=== PATIENT | female | born 1965 | race African-American/Black ===

== ENCOUNTER 2018-03-16 13:15 | Emergency (ER) | payer MEDICAID ==
[~2018-03-16] VITALS: Ht 170.2 cm; Wt 90.0 kg
[2018-03-16 15:24] LABS: CLARITY URINE CLEAR (CLEAR); COLOR URINE YELLOW (YELLOW); KETONES URINE 1+ (NEGATIVE); LEUKOCYTE ESTERASE URINE 1+ (NEGATIVE); NITRITE URINE NEGATIVE (NEGATIVE); OCCULT BLOOD URINE NEGATIVE (NEGATIVE); PROTEIN URINE TRACE (NEGATIVE); SPECIFIC GRAVITY URINE 1.017 (1.005-1.030)
[2018-03-16 15:43] LABS: HEMATOCRIT. 41.4 % (36.0-48.0); HEMOGLOBIN. 13.7 g/dL (12.0-16.0); MEAN CORPUSCULAR HEMOGLOBIN 28.3 pg (28.0-32.0); MEAN CORPUSCULAR VOLUME 85.7 fL (81.0-99.0); MEAN PLATELET VOLUME 9.1 fl (7.4-10.4); PLATELET 416 x1000/uL (130-400); RED BLOOD CELL COUNT 4.83 mill/uL (4.2-5.4)
[2018-03-16] MEDS ORDERED: HYDROMORPHONE HCL/PF 2MG/ML CPJ IV ONE (15:45)
[2018-03-16 15:48] LABS: CHLORIDE 101 mEq/L (98-107)
[2018-03-16 15:51] LABS: PROTHROMBIN TIME 10.3 sec (9.4-11.6)
[2018-03-16 16:12] LABS: PLATELET ESTIMATE INCREASED
[2018-03-16] MEDS: CEFTRIAXONE 1 G PREMIX 50 ML IV NR ×2 (16:33→17:34)
[2018-03-16 17:19] VITALS: BP 149/102
== END 2018-03-16 17:39 | disposition home or self-care (01) ==
LOC: ER 13:15
DX: K91.871 Postprocedural hematoma of a digestive system organ or structure following other procedure (principal); R10.11 Right upper quadrant pain; N39.0 Urinary tract infection, site not specified; E87.6 Hypokalemia; D47.3 Essential (hemorrhagic) thrombocythemia; R00.0 Tachycardia, unspecified; Z90.49 Acquired absence of other specified parts of digestive tract; Z88.3 Allergy status to other anti-infective agents; Y83.8 Other surgical procedures as the cause of abnormal reaction of the patient, or of later complication, without mention of misadventure at the time of the procedure; Y92.018 Other place in single-family (private) house as the place of occurrence of the external cause
CPT/HCPCS: 36415; 74176; 80053; 81003; 83690; 85025; 85610; 87086; 93005; 96365; 96375; 99285; J0696; J1170

== ENCOUNTER 2018-03-19 16:16 | Emergency (ER) | payer MEDICAID ==
[~2018-03-19] VITALS: Ht 188 cm; Wt 88.0 kg
[2018-03-19] MEDS ORDERED: ONDANSETRON HCL 4MG/2ML VIAL IV STA (16:52)
[2018-03-19] MEDS ORDERED: SODIUM CHLORIDE 0.9% 1,000 ML IV ONE (16:52)
[2018-03-19] MEDS ORDERED: MORPHINE SULFATE 4 MG/ML CPJ (NOT FOR IM USE) IV STA (16:52)
[2018-03-19 18:14] LABS: BASOPHILS % 0.6 % (0.0-2.0); EOSINOPHILS % 0.8 % (0.0-5.0); HEMATOCRIT. 35.7 % (36.0-48.0); HEMOGLOBIN. 11.8 g/dL (12.0-16.0); LYMPHOCYTES % 27.5 % (20.0-50.0); MEAN CORPUSCULAR HEMOGLOBIN 28.3 pg (28.0-32.0); MEAN CORPUSCULAR VOLUME 85.4 fL (81.0-99.0); MEAN PLATELET VOLUME 9.3 fl (7.4-10.4); MONOCYTES % 10.9 % (2.0-8.0); NEUTROPHILS % 60.2 % (40.0-76.0); PLATELET 345 x1000/uL (130-400); RED BLOOD CELL COUNT 4.18 mill/uL (4.2-5.4); RED CELL DISTRIBUTION WIDTH 13.8 % (11.6-14.6)
[2018-03-19 18:18] LABS: CHLORIDE 101 mEq/L (98-107)
[2018-03-19 18:35] LABS: CLARITY URINE CLEAR (CLEAR); COLOR URINE YELLOW (YELLOW); KETONES URINE NEGATIVE (NEGATIVE); LEUKOCYTE ESTERASE URINE TRACE (NEGATIVE); NITRITE URINE NEGATIVE (NEGATIVE); OCCULT BLOOD URINE NEGATIVE (NEGATIVE); PH URINE >=9.0 (4.5-8.0); PROTEIN URINE NEGATIVE (NEGATIVE); SPECIFIC GRAVITY URINE 1.007 (1.005-1.030)
[2018-03-19] MEDS ORDERED: IOHEXOL-300 100 ML BOTTLE ONE (19:09)
[2018-03-19] MEDS ORDERED: KETOROLAC 30MG/ML VIAL IV ONE (19:15)
[2018-03-19] MEDS ORDERED: POTASSIUM CHLORIDE 20MEQ TABLET SR PO ONE (19:45)
[2018-03-19] MEDS ORDERED: HYDROCODONE/ACETAMINOPHEN 5/325MG TABLET PO ONE (20:45)
[2018-03-19 21:49] VITALS: BP 148/84
== END 2018-03-19 21:50 | disposition home or self-care (01) ==
LOC: ER 16:16
DX: K91.870 Postprocedural hematoma of a digestive system organ or structure following a digestive system procedure (principal); D25.9 Leiomyoma of uterus, unspecified; E87.6 Hypokalemia; Z88.8 Allergy status to other drugs, medicaments and biological substances; Z88.1 Allergy status to other antibiotic agents; Y83.8 Other surgical procedures as the cause of abnormal reaction of the patient, or of later complication, without mention of misadventure at the time of the procedure
CPT/HCPCS: 36415; 74177; 80053; 81003; 83690; 85025; 93005; 96361; 96374; 96375; 99285; J1885; J2270; J2405; J7030; Q9967

== ENCOUNTER 2018-04-05 14:28 | Emergency (ER) | payer MEDICAID ==
[~2018-04-05] VITALS: Ht 182.9 cm; Wt 86.0 kg
[2018-04-05 15:49] LABS: BASOPHILS % 0.2 % (0.0-2.0); EOSINOPHILS % 0.1 % (0.0-5.0); HEMATOCRIT. 39.7 % (36.0-48.0); HEMOGLOBIN. 13.3 g/dL (12.0-16.0); LYMPHOCYTES % 30.5 % (20.0-50.0); MEAN CORPUSCULAR HEMOGLOBIN 28.2 pg (28.0-32.0); MEAN CORPUSCULAR VOLUME 84.5 fL (81.0-99.0); NEUTROPHILS % 62.2 % (40.0-76.0); PLATELET 410 x1000/uL (130-400); RED CELL DISTRIBUTION WIDTH 14.9 % (11.6-14.6)
[2018-04-05 15:53] LABS: CHLORIDE 107 mEq/L (98-107)
[2018-04-05 15:54] LABS: HCG SCREEN NEGATIVE
[2018-04-05 15:56] LABS: PROTHROMBIN TIME 10.2 sec (9.1-11.1)
[2018-04-05 16:24] LABS: CLARITY URINE CLOUDY (CLEAR); COLOR URINE ORANGE (YELLOW); KETONES URINE 1+ (NEGATIVE); LEUKOCYTE ESTERASE URINE 1+ (NEGATIVE); NITRITE URINE NEGATIVE (NEGATIVE); OCCULT BLOOD URINE 2+ (NEGATIVE); PH URINE 5.5 (4.5-8.0); PROTEIN URINE TRACE (NEGATIVE)
[2018-04-05] MEDS ORDERED: MORPHINE SULFATE 10 MG/ML CPJ IM ONE (19:15)
[2018-04-05] MEDS ORDERED: KETOROLAC 30MG/ML VIAL IM ONE (19:15)
[2018-04-05] MEDS ORDERED: IBUPROFEN 800MG TABLET PO ONE (20:00)
[2018-04-05 20:20] VITALS: BP 154/77
== END 2018-04-05 20:21 | disposition home or self-care (01) ==
LOC: ER 14:28
DX: G89.18 Other acute postprocedural pain (principal); N39.0 Urinary tract infection, site not specified; Z90.49 Acquired absence of other specified parts of digestive tract; Z88.6 Allergy status to analgesic agent; Z88.1 Allergy status to other antibiotic agents; Z98.890 Other specified postprocedural states
CPT/HCPCS: 36415; 80053; 81003; 83690; 84703; 85025; 85610; 96372; 99284; J1885; J2270